=== PATIENT | male | born 1995 | race Hispanic/Latino ===

== ENCOUNTER 2022-11-11 16:33 | Emergency (ER) | payer MEDICAID, SELFPAY ==
[2022-11-11] MEDS ORDERED: diphenhydrAMINE 50 MG/ML VIAL ONE (17:08)
[2022-11-11] MEDS ORDERED: Metoclopramide HCl 10 MG/2 ML VIAL ONE (17:08)
[2022-11-11 17:59] LABS: #Eosinphils 0.1 10x3/uL (0.0-0.5); #Monocytes 0.3 10x3/uL (0.0-1.1); #Neutrophils 4.4 10x3/uL (1.5-8.4); %Basophils 0.5 % (0.0-2.0); %Lymphocytes 12.9 % (18.0-47.0); %Monocytes 6.1 % (0.0-10.0); %Neutrophils 78.3 % (40.0-75.0); Hemoglobin 9.6 g/dL (13.5-17.5); Mean Corpuscular Hemoglobin 32.2 pg (27.0-33.0); Mean Corpuscular Volume 89.6 fl (81.2-95.1); Mean Platelet Volume 11.6 fl (7.4-10.4); Platelet Count 130 10x3/uL (150-450); RBC Distribution Width 11.6 % (11.5-14.5); Red Blood Cell (RBC) Count 2.98 10x6/uL (4.32-5.72); White Blood Cell (WBC) Count 5.6 10x3/uL (3.5-10.5)
[2022-11-11 18:08] LABS: ALT (SGPT) 13 U/L (8-55); AST (SGOT) 17 U/L (5-34); Albumin 4.2 g/dL (3.5-5.0); Alkaline Phosphatase 51 U/L (40-110); Anion Gap 18 mmol/L (10-20); BUN (Urea Nitrogen) 37 mg/dL (8.9-20.6); Bilirubin, Total 0.7 mg/dL (0.2-1.2); Calc. Creatinine Clearance 0 mL/min (70-130); Calcium 9.6 mg/dL (7.8-10.44); Carbon Dioxide 28 mmol/L (22-29); Chloride 100 mmol/L (98-107); Estimated GFR 9; Globulin 2.6 g/dL (2.4-3.5); Glucose 90 mg/dL (70-105); Potassium 4.3 mmol/L (3.5-5.1); Protein, Total 6.8 g/dL (6.0-8.3); Sodium 142 mmol/L (136-145)
[2022-11-11 18:20] LABS: CKMB 1.2 ng/mL (0-6.6)
[2022-11-11 18:27] LABS: Platelet Morphology Comment Appears Decreased
[2022-11-11] MEDS ORDERED: Carvedilol 25 MG TAB ONE (18:59)
[2022-11-11] MEDS ORDERED: Amlodipine 10 MG TAB ONE (18:59)
[2022-11-11] MEDS ORDERED: Acetaminophen 325 MG TAB ONE (20:09)
[2022-11-11 20:57] LABS: SARS-CoV-2 NAA Rapid Test Not Detected (NotDetected)
== END 2022-11-11 21:32 | disposition home or self-care (01) ==
LOC: CSHERS 16:33
DX: I12.0 Hypertensive chronic kidney disease with stage 5 chronic kidney disease or end stage renal disease (principal); N18.6 End stage renal disease; R51.9 Headache, unspecified; D50.0 Iron deficiency anemia secondary to blood loss (chronic); Z20.822 Contact with and (suspected) exposure to COVID-19; Z99.2 Dependence on renal dialysis; Z79.899 Other long term (current) drug therapy
CPT/HCPCS: 70450; 80053; 82553; 84484; 85025; 93005; 96365; 96375; J1200; J2765